=== PATIENT | male | born 1965 | race Caucasian/White ===

== ENCOUNTER → 2021-03-10 15:32 | Outpatient (CLI) | payer OTHER, SELFPAY ==
[2021-03-10 17:09] LABS: Cholesterol 229 mg/dL (140-199); HDL Cholesterol 31 mg/dL (40-60); Triglycerides 425 mg/dL (35-150)
[2021-03-10 17:39] LABS: Prostate Specific Antigen Scrn 2.81 ng/mL (0.1-4.0)
== END ==
PROVIDERS: PCP Student in an Organized Health Care Education/Training Program; Referring Provider Student in an Organized Health Care Education/Training Program; Visit Provider Student in an Organized Health Care Education/Training Program
DX: Z12.5 Encounter for screening for malignant neoplasm of prostate (principal); Z13.220 Encounter for screening for lipoid disorders
CPT/HCPCS: 36415; 80061; G0103

== ENCOUNTER → 2023-03-28 09:51 | Outpatient (CLI) | payer OTHER, SELFPAY ==
[2023-03-28 10:37] LABS: Cholesterol 249 mg/dL (140-199); HDL Cholesterol 33 mg/dL (40-60); LDL Cholesterol Calculated 160 mg/dL (<100); Triglycerides 282 mg/dL (35-150)
[2023-03-28 11:04] LABS: Prostate Specific Antigen Scrn 3.55 ng/mL (0.1-4.0)
[2023-03-28 16:07] LABS: Hep C Virus Ab w/Reflex Quant NEGATIVE s/c (NEGATIVE)
== END ==
PROVIDERS: PCP Student in an Organized Health Care Education/Training Program; Referring Provider Student in an Organized Health Care Education/Training Program; Visit Provider Student in an Organized Health Care Education/Training Program
DX: E78.1 Pure hyperglyceridemia (principal); Z11.59 Encounter for screening for other viral diseases; E78.2 Mixed hyperlipidemia; Z12.5 Encounter for screening for malignant neoplasm of prostate
CPT/HCPCS: 36415; 80061; 86803; G0103

== ENCOUNTER → 2025-05-02 14:22 | Outpatient (CLI) | payer OTHER, SELFPAY ==
--- NOTE | 2025-05-02 14:23 | DI.MRI.S_ITS ---
PROCEDURE: MR HEAD/BRAIN WO/W CON INDICATIONS: SECONDARY SWIZURE DISORDER TECHNIQUE: Noncontrast axial T1 spin echo, axial T2 fast spin echo, sagittal and axial FLAIR, axial gradient echo, axial diffusion and ADC, coronal thin-slice T2 FSE through the brain. Optional contrast, followed by axial and coronal and sagittal 3D VIBE or T1 spin echo with fat saturation sequences through the brain. COMPARISON: None. FINDINGS: Image quality: Excellent. CSF spaces: Ventricles are normal in size and shape. Basal cisterns are patent. No extra-axial fluid collections. Brain: No intracranial bleeds or mass effects. No abnormal intracranial enhancement. Lew-white matter interface appears intact. Diffusion weighted images demonstrate no acute ischemic insults. There is a [id number] degree of microvascular atherosclerotic change scattered within the deep white matter of each hemisphere. Brainstem appear normal. Normal intravascular flow voids are present. The hippocampal regions appear normal and symmetric in morphology. Skull and face: Calvarial marrow signal is normal. Orbits appear normal. Sinuses: Sinuses and mastoids are clear except for mild mucosal thickening involving the maxillary sinuses without air-fluid level, and a scant degree of fluid retention within several individual mastoid air cells, bilaterally.. IMPRESSION: Etiology of seizure activity is not found. No trauma from seizure is identified. Dictated by: Tk Ascencio M.D. on 05/03/2025 at 15:05 Approved by: Tk Ascencio M.D. on 05/03/2025 at 15:08
== END ==
PROVIDERS: PCP Family Medicine; Referring Provider Family Medicine; Visit Provider Family Medicine
DX: G40.909 Epilepsy, unspecified, not intractable, without status epilepticus (principal)
CPT/HCPCS: 70553; A9579